=== PATIENT | female | born 1960 | race Caucasian/White ===

== ENCOUNTER → 2016-09-18 | Outpatient (CLI) | payer BC, OTHER ==
[~2016-09-18] MED LIST: ACET-1256 PO; DILT-113 PO; LISI20TA55 PO; METO50TA17 PO; SIMV20TA2 PO
[2016-09-18 17:47] LABS: BASO % 0.3 %; BASO ABS # 0.02 K/uL (0-0.2); COMPLETE YES; EOS % 2.8 %; HEMATOCRIT 42.7 % (37-47); IG% 0.1 %; LYMPH % 33.3 %; LYMPH ABS # 2.39 K/uL (1.2-3.4); MEAN CELL VOLUME 85.7 fL (80-100); MEAN CORPUSCULAR HEMOGLOBIN 29.3 pg (25-34); MEAN CORPUSCULAR HGB CONC 34.2 g/dl (32-36); MEAN PLATELET VOLUME 9.8 fL (7.4-10.4); MONO % 8.6 %; NEUT % 54.9 %; PLATELET COUNT 217 K/uL (130-400); RED BLOOD COUNT 4.98 M/uL (4.2-5.4); WHITE BLOOD COUNT 7.17 K/uL (4.8-10.8)
[2016-09-18 18:06] LABS: URINE APPEARANCE CLEAR (CLEAR); URINE BILIRUBIN NEG (NEG); URINE COLOR YELLOW; URINE EPITHELIAL CELL AUTO 0-5 /lpf (0-5); URINE NITRITE NEG (NEG); URINE SPECIFIC GRAVITY 1.017 (1.000-1.030); UROBILINOGEN NEG (NEG); ZZUR CULT IF INDIC CLEAN CATCH NO
[2016-09-18 18:11] LABS: MANUAL MICROSCOPIC REQUIRED? NO; REVIEW REQ? NO
[2016-09-18 18:32] LABS: ALT/SGPT 41 U/L (12-78); AST/SGOT 21 U/L (15-37); BLOOD UREA NITROGEN 22 mg/dl (7-18); BUN/CREATININE RATIO 33.2 (10-20); CALCIUM 9.4 mg/dl (8.5-10.1); CARBON DIOXIDE 28 mmol/L (21-32); CHLORIDE 103 mmol/L (98-107); CREATININE 0.65 mg/dl (0.60-1.20); GLUCOSE 80 mg/dl (70-99); POTASSIUM 3.3 mmol/L (3.5-5.1); SODIUM 140 mmol/L (136-145)
[2016-09-18 18:43] LABS: ALB/GLOB RATIO 1.1 (0.9-2); ALKALINE PHOSPHATASE 69 U/L (45-117); CHOLESTEROL 176 mg/dl (0-200); CHOLESTEROL/HDL RATIO 3.7; HDL CHOLESTEROL 48 mg/dl; LDL CHOLESTEROL CALCULATED 100 mg/dl; TRIGLYCERIDES 140 mg/dl (0-150); VERY LOW DENSITY LIPOPROT CALC 28 mg/dl
== END | disposition home or self-care (01) ==
LOC: C.LABBFT 11:46
PROVIDERS: ATTEND Internal Medicine
DX: E78.00 Pure hypercholesterolemia, unspecified (principal)

== ENCOUNTER → 2017-02-14 | Outpatient (CLI) | payer BC ==
[~2017-02-14] MED LIST changes: -ACET-1256 PO; -DILT-113 PO; -LISI20TA55 PO; -METO50TA17 PO; +OPTIRAY 320 IV PRN; -SIMV20TA2 PO
[2017-02-14 15:16] LABS: ISTAT CREATININE 0.7 mg/dl (0.6-1.3); ISTAT IONIZED CALCIUM 1.26 mmol/l (1.12-1.32)
--- NOTE | 2017-02-14 15:20 | DIAGNOSTIC IMAGING REPORT ---
CT OF THE NECK WITH CONTRAST CLINICAL HISTORY: Sore throat. Neck fullness. Evaluate for abscess. COMPARISON STUDY: No previous studies for comparison. TECHNIQUE: Axial images of the neck were obtained following intravenous injection of 113 cc of Optiray 320 IV. FINDINGS: Visualized portions of the intracranial contents are unremarkable. There is mild polypoid mucosal thickening of the left maxillary sinus. The parotid and submandibular glands are normal. The epiglottis is normal. There is no abscess within the neck. No enlarged cervical lymph nodes are identified. No mucosal lesions are identified within the neck although these may be occult by CT. There is asymmetric enlargement of the right thyroid lobe. There are multiple suspected thyroid nodules, the largest of which is a 2.1 cm hypodense right lobe thyroid nodule. Lung apices are clear. No suspicious osseous lesions are present. There is no soft tissue gas within the neck. IMPRESSION: 1. No acute process within the neck by CT. No abscess or lymphadenopathy. Normal epiglottis. 2. Findings suggestive of a multinodular thyroid gland with asymmetric enlargement of the right thyroid lobe. Suspected 2.1 cm right lobe thyroid nodule. A thyroid ultrasound could be obtained. Electronically signed by: Neto Heredia M.D. 02/14/2017 3:19 PM Dictated Date/Time: 02/14/2017 3:14 PM
== END | disposition home or self-care (01) ==
LOC: C.CTS 13:42
PROVIDERS: ATTEND Nurse Practitioner
DX: J02.9 Acute pharyngitis, unspecified (principal); R22.1 Localized swelling, mass and lump, neck

== ENCOUNTER → 2017-02-14 | Outpatient (CLI) | payer BC ==
[2017-02-14 17:21] LABS: BASO % 0.2 %; BASO ABS # 0.02 K/uL (0-0.2); COMPLETE YES; EOS % 1.9 %; HEMATOCRIT 45.8 % (37-47); IG% 0.1 %; LYMPH % 22.3 %; LYMPH ABS # 2.07 K/uL (1.2-3.4); MEAN CELL VOLUME 86.3 fL (80-100); MEAN CORPUSCULAR HEMOGLOBIN 28.6 pg (25-34); MEAN CORPUSCULAR HGB CONC 33.2 g/dl (32-36); MEAN PLATELET VOLUME 9.7 fL (7.4-10.4); MONO % 6.8 %; NEUT % 68.7 %; PLATELET COUNT 247 K/uL (130-400); RED BLOOD COUNT 5.31 M/uL (4.2-5.4); WHITE BLOOD COUNT 9.28 K/uL (4.8-10.8)
[2017-02-14 17:29] LABS: ALT/SGPT 48 U/L (12-78); AST/SGOT 18 U/L (15-37); BLOOD UREA NITROGEN 30 mg/dl (7-18); CARBON DIOXIDE 28 mmol/L (21-32); CHLORIDE 102 mmol/L (98-107); CREATININE 0.71 mg/dl (0.60-1.20); GLUCOSE 87 mg/dl (70-99); POTASSIUM 3.4 mmol/L (3.5-5.1); SODIUM 138 mmol/L (136-145)
[2017-02-14 17:39] LABS: ALB/GLOB RATIO 1.1 (0.9-2); ALKALINE PHOSPHATASE 72 U/L (45-117)
== END | disposition home or self-care (01) ==
LOC: C.LABBFT 12:12
PROVIDERS: ATTEND Nurse Practitioner
DX: J02.9 Acute pharyngitis, unspecified (principal); R22.1 Localized swelling, mass and lump, neck

== ENCOUNTER → 2017-02-19 | Outpatient (CLI) | payer BC ==
[~2017-02-19] MED LIST changes: +ACET-1256 PO; +DILT-113 PO; +LISI20TA55 PO; +METO50TA17 PO; -OPTIRAY 320 IV PRN; +SIMV20TA2 PO
--- NOTE | 2017-02-19 11:56 | DIAGNOSTIC IMAGING REPORT ---
SOFT TISS HEAD/NECK-THYROID HISTORY: Multinodular thyroid. COMPARISON: Soft tissue of the neck CT 02/14/2017 TECHNIQUE: Multiple real time sonographic images of the thyroid were obtained accessing hallman scale appearance and color doppler flow. FINDINGS: MEASUREMENTS: Right lobe: 6.5 x 2.6 x 2.8 cm Left lobe: 6.1 x 1.8 x 2.0 cm Isthmus: 0.8 cm Parenchyma: The thyroid parenchymal echotexture is diffusely heterogeneous. Nodules: Isoechoic circumscribed ovoid nodule in the right thyroid is seen, 2.1 x 1.7 x 1.7 cm with internal vascularity. Second similarly appearing iso to slightly hypoechoic right thyroid nodule measures 2.4 x 2.2 x 2.0 cm. Heterogeneous ovoid circumscribed isoechoic nodule of the left thyroid is seen measuring 1.9 x 1.2 x 1.5 cm with internal vascularity. No associated microcalcifications are identified. IMPRESSION: Heterogeneous multinodular goiter with three nodules identified measuring over 1.5 cm. These would meet criteria for FNA. The above report was generated using voice recognition software. It may contain grammatical, syntax or spelling errors. Electronically signed by: Edgard Caba M.D. 02/19/2017 11:54 AM Dictated Date/Time: 02/19/2017 11:49 AM
== END | disposition home or self-care (01) ==
LOC: C.ULTR 11:06
PROVIDERS: ATTEND Nurse Practitioner
DX: E04.2 Nontoxic multinodular goiter (principal)

== ENCOUNTER → 2017-03-18 | Outpatient (CLI) | payer BC ==
--- NOTE | 2017-03-18 11:24 | DIAGNOSTIC IMAGING REPORT ---
GUIDANCE NEEDLE PLACEMENT CLINICAL HISTORY: 56 years-old Female presenting with MUILTINODULAR THYROID. TECHNIQUE: Real-time grayscale and limited color Doppler ultrasound imaging of the thyroid and base of the neck was performed for ultrasound-guided fine-needle aspiration. COMPARISON: Ultrasound from 02/19/2017. PROCEDURE: The risks, benefits, and alternatives to the procedure were discussed with the patient. Written informed consent was obtained. The patient was placed supine in ultrasound. The previously identified 2 right and single left thyroid nodules were targeted in succession for fine-needle aspiration with the superior right thyroid lobe nodule labeled right #1 and the inferior right thyroid lobe nodule labeled right #2. The 2.1 cm nodule in the right lobe of the thyroid was localized by ultrasound and selected for initial fine needle aspiration. The additional 2.4 cm right thyroid nodule and 1.9 cm left thyroid nodule were also subsequently targeted. The neck was prepped and draped in the usual sterile fashion. The nodules were aspirated under ultrasound guidance with 3 passes each utilizing 25-gauge needles. Specimens were reviewed by the pathologist at the time of biopsy and were deemed adequate for diagnosis. The patient tolerated the procedure well and left the department in satisfactory condition. IMPRESSION: Successful fine-needle aspiration of the 3 thyroid nodules as above. Electronically signed by: Derick Sheth M.D. 03/18/2017 11:22 AM Dictated Date/Time: 03/18/2017 11:19 AM
== END | disposition home or self-care (01) ==
LOC: C.ULTR 09:30
PROVIDERS: ATTEND Physician Assistant Medical
DX: E04.2 Nontoxic multinodular goiter (principal)

== ENCOUNTER → 2017-05-10 | Day surgery (SDC) | payer BC ==
[2017-04-25 15:30] VITALS: BMI 34.0
[~2017-05-10] VITALS: Ht 165.1 cm; Wt 93.2 kg
[~2017-05-10] MED LIST changes: +LIDOCAINE HCL 2% 2 ML VIAL (20MG/ML) ONE; +MIDAZOLAM HCL 1 MG/ML 2ML VIAL ONE; +PROPOFOL IV EMULSION 10 MG/ML 20 ML VIAL IV ONE; +SODIUM CHLORIDE 0.9% 500ML 500 ML IV ONE
[2017-05-10 09:17] VITALS: Ht 165.1 cm; Wt 93.2 kg
--- NOTE | 2017-05-10 09:28 | Endo History and Physical ---
History & Physical Date of Service: May 10, 2017. Chief Complaint: Family history of colon cancer (Father) Referring Physician: Dr. Denney History of Present Illness 57 yo CF who presents for colonoscopy secondary to family history of colon cancer (Father). Past Surgical History Hx Cardiac Surgery: No Hx Internal Defibrillator: No Hx Pacemaker: No Hx Abdominal Surgery: Yes (C SECTION X 2) Hx of Implantable Prosthesis: No Hx Post-Op Nausea and Vomiting: No Hx Cancer Surgery: No Hx Thoracic Surgery: No Hx Orthopedic: Yes (GIANT CELL EXCISION L HAND) Hx Urinary Tract Surgery: No Family History Colon CA Social History Smoking Status: Never Smoker Hx Substance Use: No Hx Alcohol Use: Yes (RARELY) Allergies Coded Allergies: Penicillins (Verified Allergy, Unknown, RASH,DIARRHEA,PUFFY FACE A CHILD, 05/10/17) Current Medications Reported Home Medications Medications Dose Route/Sig Max Daily Dose Days Date Category Tylenol (Acetaminophen) 500 Mg Tab 1,000 Mg PO PRN 04/25/17 Reported Zocor (Simvastatin) 20 Mg Tab 20 Mg PO HS 04/25/17 Reported Metoprolol Tartrate 50 Mg Tab 50 Mg PO QAM 04/25/17 Reported Prinzide 20-25MG (HCTZ/Lisinopril) Tab 1 Tab PO BID 04/25/17 Reported Tiazac (Diltiazem HCl) 180 Mg Capcr 180 Mg PO QAM 04/25/17 Reported Vital Signs Weight (Kilograms): 93.18 Height (Feet): 5 Height (Inches): 5 Physical Exam General Appearance: WD/WN, no apparent distress Respiratory/Chest: Auscultation: breath sounds normal Cardiovascular: Heart Auscultation: RRR Abdomen: Bowel Sounds: normal Inspection & Palpation: soft, non-distended, no tenderness, guarding & rebound Assessment and Plan Assessment: 57 yo CF who presents for colonoscopy secondary to family history of colon cancer (Father). Plan: Proceed with colonoscopy.
--- NOTE | 2017-05-10 10:16 | Discharge Instructions ---
Endoscopy Patient Instructions Date / Procedure(s) Performed May 10, 2017. Colonoscopy Allergy Information Coded Allergies: Penicillins (Verified Allergy, Unknown, RASH,DIARRHEA,PUFFY FACE A CHILD, 05/10/17) Discharge Date / Findings May 10, 2017. Diverticulosis Internal hemorrhoids Medication Instructions OK to resume all medications today as prescribed Reported Home Medications Medications Dose Route/Sig Max Daily Dose Days Date Category Tylenol (Acetaminophen) 500 Mg Tab 1,000 Mg PO PRN 04/25/17 Reported Zocor (Simvastatin) 20 Mg Tab 20 Mg PO HS 04/25/17 Reported Metoprolol Tartrate 50 Mg Tab 50 Mg PO QAM 04/25/17 Reported Prinzide 20-25MG (HCTZ/Lisinopril) Tab 1 Tab PO BID 04/25/17 Reported Tiazac (Diltiazem HCl) 180 Mg Capcr 180 Mg PO QAM 04/25/17 Reported Provider Instructions Activity Restrictions - No exercising or heavy lifting for 24 hours. - Do not drink alcohol the day of the procedure. - Do not drive a car or operate machinery until the day after the procedure. - Do not make any important decisions or sign important papers in 24 hours after the procedure. Following Day: - Return to full activity which may include returning to work/school. Diet Start your diet with liquids and light foods (jello, soup, juice, toast). Then eat your usual diet if not nauseated. Treatment For Common After Affects For mild abdominal pain, bloating, or excessive gas: - Rest - Eat lightly - Lie on right side Follow-Up Information Follow-up with DR. SWANSON as scheduled Anesthesia Information What You Should Know You have had a procedure that required some medicine to reduce anxiety and discomfort. This treatment is called moderate sedation. After receiving the treatment, you may be sleepy, but you will be able to breathe on your own. The effects of the treatment may last for several hours. Follow these instructions along with Activity/Diet recommendations noted above: * Do NOT do anything where dizziness or clumsiness would be dangerous. * Rest quietly at home today, then you can be up and about tomorrow. * Have a responsible person stay with you the rest of today. * You may have had an I.V. today. If so, you may take the dressing off later today. Recommendations Call your doctor if: * Trouble breathing * Continuous vomiting for more than 24 hours * Temperature above 101 degrees * Severe abdominal pain or bloating * Pain not relieved by pain medicine ordered * There is increased drainage or redness from any incision * A large amount of rectal bleeding greater than 2-3 tablespoons. (If you had a polyp/s removed or have hemorrhoids, a small amount of blood - from the rectum is to be expected.) * You have any unanswered questions or concerns. IN THE EVENT OF A SERIOUS EMERGENCY, GO TO THE NEAREST EMERGENCY ROOM Your discharge instructions were prepared by provider Bret Lzooya. Patient Instructions Signature Page Rianna Quintero Patient (or Guardian) Signature/Date: I have read and understand the instructions given to me by my caregivers. Caregiver/RN/Doctor Signature/Date: The above-named patient and/or guardian has received patient instructions on this date. + Original Patient Signature Page (only) stays with chart. Please make copy for patient.
--- NOTE | 2017-05-10 10:21 | GI REPORT ---
Procedure Date: 05/10/2017 9:55 AM Procedure: Colonoscopy Indications: Family history of colon cancer in a first-degree relative Medicines: Monitored Anesthesia Care Complications: No immediate complications. Estimated Blood Loss: Estimated blood loss: none. Procedure: Pre-Anesthesia Assessment: - Prior to the procedure, a History and Physical was performed, and patient medications and allergies were reviewed. The patient's tolerance of previous anesthesia was also reviewed. The risks and benefits of the procedure and the sedation options and risks were discussed with the patient. All questions were answered, and informed consent was obtained. Prior Anticoagulants: The patient has taken no previous anticoagulant or antiplatelet agents. ASA Grade Assessment: II - A patient with mild systemic disease. After reviewing the risks and benefits, the patient was deemed in satisfactory condition to undergo the procedure. After I obtained informed consent, the scope was passed under direct vision. Throughout the procedure, the patient's blood pressure, pulse, and oxygen saturations were monitored continuously. The scope was introduced through the anus and advanced to the terminal ileum. The colonoscopy was performed without difficulty. The patient tolerated the procedure well. The quality of the bowel preparation was good. The terminal ileum, the ileocecal valve and the appendiceal orifice were photographed. Findings: Multiple small-mouthed diverticula were found in the sigmoid colon. Non-bleeding internal hemorrhoids were found during retroflexion. The hemorrhoids were small. Impression: - Diverticulosis in the sigmoid colon. - Non-bleeding internal hemorrhoids. - No specimens collected. Recommendation: - Resume previous diet. - Continue present medications. - Repeat colonoscopy in 5 years for surveillance. - Return to primary care physician as previously scheduled. Bret Lozoya, 05/10/2017 10:20:45 AM This report has been signed electronically. Note Initiated On: 05/10/2017 9:55 AM I attest to the content of the Intraoperative Record and orders documented therein, exceptions below
--- NOTE | 2017-05-10 10:46 | Anesthesiology Progress Note ---
Anesthesia Post Op Note Date & Time May 10, 2017 at 10:46 Vital Signs Pain Intensity: 0 Vital Signs Past 12 Hours Date Time Temp Pulse Resp B/P (MAP) Pulse Ox O2 Delivery O2 Flow Rate FiO2 05/10/17 10:34 64 20 121/75 (90) 98 Room Air 05/10/17 10:17 64 20 112/71 (85) 98 Room Air 05/10/17 09:39 36.8 55 20 137/74 (95) 98 Room Air Notes Mental Status: alert / awake / arousable, participated in evaluation Pt Amnestic to Procedure: Yes Nausea / Vomiting: adequately controlled Pain: adequately controlled Airway Patency, RR, SpO2: stable & adequate BP & HR: stable & adequate Hydration State: stable & adequate Anesthetic Complications: no major complications apparent
[2017-05-10 10:50] VITALS: BP 135/84; PULSE 54; O2SAT 99
== END | disposition home or self-care (01) ==
LOC: C.GI 09:03
PROVIDERS: ATTEND Internal Medicine
DX: Z12.11 Encounter for screening for malignant neoplasm of colon (principal); K57.32 Diverticulitis of large intestine without perforation or abscess without bleeding; K64.8 Other hemorrhoids; Z80.0 Family history of malignant neoplasm of digestive organs

== ENCOUNTER 2020-04-18 05:22 | Observation (INO) ==
[2020-04-13 12:00] LABS: Basophils # (auto) 0.02 K/uL (0-0.2); Basophils % (auto) 0.3 %; Eosinophils # (auto) 0.18 K/uL (0-0.5); Eosinophils % (auto) 2.9 %; Hematocrit (blood only) 43.8 % (37-47); Hemoglobin 14.8 g/dL (12.0-16.0); Immature Granulocytes # (auto) 0.01 K/uL (0.00-0.02); Immature Granulocytes % (auto) 0.2 %; Lymphocytes # (auto) 1.44 K/uL (1.2-3.4); Lymphocytes % (auto) 23.5 %; Mean Corpuscular Hemoglobin 29.7 pg (25-34); Mean Corpuscular Hgb Conc 33.8 g/dL (32-36); Mean Corpuscular Volume 87.8 fL (80-100); Mean Platelet Volume 9.3 fL (7.4-10.4); Monocytes # (auto) 0.55 K/uL (0.11-0.59); Neutrophils # (auto) 3.92 K/uL (1.4-6.5); Neutrophils % (auto) 64.1 %; Platelet Count 207 K/uL (130-400); RDW Coefficient of Variation 14.4 % (11.5-14.5); RDW Standard Deviation 46.2 fL (36.4-46.3); Red Blood Count 4.99 M/uL (4.2-5.4); White Blood Count 6.12 K/uL (4.8-10.8)
[2020-04-13 12:08] LABS: BUN Creatinine Ratio 21.8 (10-20); Creatinine Clr Calc Pharmacy 88.1 ml/min; Est GFR (African American) 91.5; Est GFR (Non-African American) 78.9; Potassium 3.4 mmol/L (3.5-5.1)
--- NOTE | 2020-04-13 19:21 | Electrocardiogram Report ---
Test Reason : Blood Pressure : / mmHG Vent. Rate : 054 BPM Atrial Rate : 054 BPM P-R Int : 178 ms QRS Dur : 100 ms QT Int : 444 ms P-R-T Axes : 016 024 030 degrees QTc Int : 421 ms Sinus bradycardia Otherwise normal ECG When compared with ECG of 09-FEB-2019 14:55, No significant change was found Confirmed by Jamal Galloway ([id number]) on 04/13/2020 7:20:46 PM Referred By: Jermaine Segal Confirmed By:Ziggy Galloway
--- NOTE | 2020-04-14 09:12 | Anesthesiology Consultation ---
Date of Service April 14, 2020 Assessment & Plan (1) Encounter for pre-operative examination: COVID Status: As of 04/07 nurse assessment, patient denies travel to endemic area, known exposure/sick contacts, or symptoms of COVID19. The patient works at [employer], but there have been no positive cases recently. Preoperative COVID19 testing completed on 04/13, results currently pending. Chart Review Chart Review: Acceptable Risk for Surgery and Patient NOT seen in Pre Admission Testing History Surgery Operation Date: 04/18/20 07:00 Proposed Procedures p Laparoscopic Incisional and Umbilical Hermia Reapir, Possible Open - Jermaine Segal MD, FACS Height/Weight Height: 5 ft 5 in Weight: 103.419 kg Allergies Allergy/AdvReac Type Severity Reaction Status Date / Time Penicillins Allergy Intermediate RASH,DIARRHEA,PUFFY Verified 04/07/20 08:25 FACE A CHILD Medications Home Medications Medication Instructions Recorded Confirmed Last Taken simvastatin 20 mg tablet 20 mg PO HS #90 tab 07/14/19 04/07/20 Unknown lisinopril 20 1 tab PO BID #180 tab 07/23/19 04/07/20 Unknown mg-hydrochlorothiazide 25 mg tablet diltiazem HCl 180 mg capsule,24 180 mg PO DAILY #90 cap 08/26/19 04/07/20 Unknown hr,extended release metoprolol tartrate 50 mg tablet 50 mg PO QPM #90 tab 08/27/19 04/07/20 Unknown Past Medical History Medical History Endometrial cancer Diagnosed 02/11/19 (SURGERY AND INTERNAL RADIATION) Hypertension Obesity Past Family History Family History Mother , Passed age 80 of Heart Disease Cervical cancer, Onset Age: 40 Had hysterectomy as only treatment Heart disease Hypertension Father , Passed age 88 of Colon Cancer (refused treatment at diagnosis) Colorectal cancer Brother Heart disease Family history of diabetes mellitus Brother Heart disease Brother Heart disease Daughter No problems noted. Son No problems noted. Son No problems noted. Grandmother (Maternal) Heart disease Denies family history of Ovarian cancer Prostate cancer Myocardial infarction Breast cancer Past Surgical History Surgical History Family history of reaction to anesthesia MOTHER-SLOW TO WAKE UP History of surgery LEFT INDEX FINGER (BENIGN TUMOR REMOVAL) History of tooth extraction History of total hysterectomy with bilateral salpingo-oophorectomy (BSO) 03/12/19 (with Dr. Jay) Hx of section 1980 & 1983 Hx of colonoscopy Hx of dilation and curettage MULTIPLE Social History Smoking Status: Never smoker Do You Dip or Chew Tobacco: No Hx Alcohol Use: Yes Alcohol type: wine alcohol intake frequency: a few times a month Hx Substance Use: No substance use type: does not use Testing Laboratory Results 04/13/20 09:52 04/13/20 09:52 Electrocardiogram Date: 04/13/20 Findings: + SB @ (54bpm)
[2020-04-14 19:33] LABS: SARS CoV2 RNA (COVID-19) NOT DETECTED (NOT DETECTED)
[2020-04-18] MEDS ORDERED: CEFAZOLIN 2000MG 2,000 MG/15 ML SYR IV SCH (06:00)
[2020-04-18] MEDS ORDERED: LACTATED RINGER'S 1,000 ML IV SCH (06:00)
--- NOTE | 2020-04-18 06:22 | History & Physical Report ---
Date of Service April 18, 2020 Assessment & Plan (1) Incisional hernia: Patient with umbilical hernia and incisional hernia For laparoscopic hernia repair possible open repair [facility] with general anesthesia Observation History of Present Illness Primary Care Provider: Dwayne Denney MD 60-year-old female with a history of umbilical hernia and incisional hernia just below the umbilicus She has had prior hysterectomy via robotic surgery She has a history of radiation therapy She is for laparoscopic hernia repair possible open Allergies Allergy/AdvReac Type Severity Reaction Status Date / Time Penicillins Allergy Intermediate RASH,DIARRHEA,PUFFY Verified 04/18/20 05:52 FACE A CHILD Home Medications Home Medications Medication Instructions Recorded Confirmed Type simvastatin 20 mg tablet 20 mg PO HS #90 tab 07/14/19 04/18/20 Rx lisinopril 20 1 tab PO BID #180 tab 07/23/19 04/18/20 Rx mg-hydrochlorothiazide 25 mg tablet diltiazem HCl 180 mg capsule,24 180 mg PO DAILY #90 cap 08/26/19 04/18/20 Rx hr,extended release metoprolol tartrate 50 mg tablet 50 mg PO QPM #90 tab 08/27/19 04/18/20 Rx Past Med/Surg History Medical History Endometrial cancer Diagnosed 02/11/19 (SURGERY AND INTERNAL RADIATION) Hypertension Obesity Surgical History Family history of reaction to anesthesia MOTHER-SLOW TO WAKE UP History of surgery LEFT INDEX FINGER (BENIGN TUMOR REMOVAL) History of tooth extraction History of total hysterectomy with bilateral salpingo-oophorectomy (BSO) 03/12/19 (with Dr. Jay) Hx of section 1980 & 1983 Hx of colonoscopy Hx of dilation and curettage MULTIPLE Family History Mother , Passed age 80 of Heart Disease Cervical cancer, Onset Age: 40 Had hysterectomy as only treatment Heart disease Hypertension Father , Passed age 88 of Colon Cancer (refused treatment at diagnosis) Colorectal cancer Brother Heart disease Family history of diabetes mellitus Brother Heart disease Brother Heart disease Daughter No problems noted. Son No problems noted. Son No problems noted. Grandmother (Maternal) Heart disease Denies family history of Ovarian cancer Prostate cancer Myocardial infarction Breast cancer Social History (Updated 03/08/20 @ 08:25 by Raina Panchal RN) Smoking Status: Never smoker Second Hand Exposure: No; Do You Dip or Chew Tobacco: No; Tobacco Cessation Education Requested by Patient: No Hx Alcohol Use: Yes Alcohol type: wine Alcohol Intake Frequency Comment: occassionally Hx Substance Use: No Preferred Language: Burmese Communication Ability: Effective Visual Impairment: Limited Hearing Ability: Normal Qa Lead Required: No Beliefs That Will Affect Care: None marital status: Current Living Situation: Spouse current occupational status: employed 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 @ [employer] Feels Safe at Home: Yes Safety Concerns: Feels Safe At This Time Childhood Exposure to Second-Hand Smoke: No caffeine: Yes (2-3 cups of iced tea/day ) during the past year weight has: decreased > 10 lbs Dental Care, Regularly: Yes Physical Activity Frequency: 3-4 Times per Week Review of Systems All systems reviewed & are unremarkable except as noted in HPI & below Physical Exam Constitutional: well developed and well nourished; no acute distress Eyes: + anicteric sclerae Respiratory: normal respiratory effort; no respiratory distress Cardiovascular: Rate/Rhythm: regular rate Gastrointestinal (Abdomen): Percussion/Palpation: abdomen soft Musculoskeletal: Gait: normal gait Skin: no rashes, warm and dry Neurologic: awake Psychiatric: Orientation: alert Results & Data ([facility]) Vital Signs (Past 12 Hours) Vital Signs Temp Pulse Resp BP Pulse Ox 04/18/20 05:42 36.6 C 63 18 147/77 H 97
[2020-04-18] MEDS ORDERED: ROCURONIUM BROMIDE 10 MG/ML 5 ML VIAL IV ONE (06:25)
[2020-04-18] MEDS ORDERED: GLYCOPYRROLATE 0.2 MG/ML VIAL ONE (06:25)
[2020-04-18] MEDS ORDERED: PROPOFOL IV EMULSION 10 MG/ML 20 ML VIAL IV ONE (06:25)
[2020-04-18] MEDS ORDERED: LIDOCAINE HCL 2% 2 ML VIAL/AMP(20MG/ML) INFIL ONE (06:25)
[2020-04-18] MEDS ORDERED: NEOSTIGMINE METHYLSULFATE 5 MG/5 ML SYR ONE (06:25)
[2020-04-18] MEDS ORDERED: fentaNYL citrate 100 MCG/2 ML VIAL ONE (06:26)
[2020-04-18] MEDS ORDERED: MIDAZOLAM HCL 1 MG/ML 2ML VIAL ONE (06:26)
[2020-04-18] MEDS ORDERED: LIDOCAINE HCL 1% 20 ML VIAL ONE (06:46)
[2020-04-18] MEDS ORDERED: BUPIVACAINE 0.5 % 5 MG/1 ML MPF 30ML VIAL ONE ×2 (06:46→07:49)
[2020-04-18] MEDS ORDERED: ePHEDrine sulfate 50 MG/ML AMP IV PRN (06:50)
[2020-04-18] MEDS ORDERED: fentaNYL citrate 100 MCG/2 ML VIAL IV PRN (06:50)
[2020-04-18] MEDS ORDERED: ONDANSETRON INJ 2 MG/ML 2 ML VIAL IV PRN ×2 (06:50→09:41)
[2020-04-18] MEDS ORDERED: ATROPINE SULFATE 0.1 MG/ML 10ML SYR IV PRN (06:50)
[2020-04-18] MEDS ORDERED: ONDANSETRON INJ 2 MG/ML 2 ML VIAL ONE (07:19)
[2020-04-18] MEDS ORDERED: DEXAMETHASONE SOD INJ 4 MG/ML VIAL ONE (07:19)
[2020-04-18] MEDS ORDERED: ePHEDrine sulfate 50 MG/ML SYR ONE (08:11)
[2020-04-18] MEDS ORDERED: ACETAMINOPHEN 1,000 MG/100 ML VIAL IV ONE (08:14)
--- NOTE | 2020-04-18 08:14 | Post Operative Brief Note ---
PG Immediate Post Op with CF Date of Surgery April 18, 2020 Pre & Post Diagnosis Operation Date: 04/18/20 07:00 Pre-Op Diagnosis: Incisional Hernia; Umbilical Hernia Post-Op Diagnosis: Incisional Hernia; Umbilical Hernia I identified the patient and participated in the time-out.: Yes Procedure Operation Date: 04/18/20 07:00 Actual Procedures p Laparoscopic Incisional and Umbilical Hermia Repair(Not Applicable) - Jermaine Segal MD, FACS Surgeon Jermaine Segal MD, FACS [employer] Kimmy Candelario Estimated Blood Loss 10 Findings Consistent with Post-Op Diagnosis Specimens Specimen Description: None per surgeon
--- NOTE | 2020-04-18 08:49 | Anesthesiology Progress Note ---
Date of Service April 18, 2020 Anesthesia Post Procedure Vital Signs Vital Signs: Temp Pulse Pulse Resp BP Pulse Ox 04/18/20 08:35 61 16 104/62 96 04/18/20 08:28 36.6 C 66 16 115/63 97 04/18/20 05:42 36.6 C 63 18 147/77 H 97 Transfer of Care Handoff Completed per policy Notes Mental Status: alert / awake / arousable Patient Amnestic to Procedure: Yes Nausea / Vomiting: adequately controlled Pain: adequately controlled Airway Patency, RR, SpO2: stable & adequate BP & HR: stable & adequate Hydration State: stable & adequate Anesthetic Complications: no major complications apparent
--- NOTE | 2020-04-18 08:55 | Operative Report (OR) ---
DATE OF OPERATION: 04/18/2020 NAME OF OPERATION: Laparoscopic umbilical and incisional hernia repairs. PREOPERATIVE DIAGNOSIS: Umbilical and incisional hernia. POSTOPERATIVE DIAGNOSIS: Umbilical and incisional hernia. STAFF SURGEON: Jermaine Segal MD. PARCEL WRAPPER: Sandeep Candelario PA-C. ANESTHESIA: General. DESCRIPTION OF PROCEDURE: The patient was brought in the operating room and placed on the operating table in supine position. Her abdomen was prepped and draped in usual fashion. Pneumatic stockings, orogastric tube were placed. My human resources assistant manager helped with prepping, draping, repair of the hernia and closure of the wounds. Initially, incision was made in the left upper quadrant using 0.5% plain Marcaine to anesthetize all incisions. Dissection was carried down to the fascia, placing a Veress needle producing pneumoperitoneum, placing an 11 mm port. Under visualization, four 5 mm ports were placed, 2 in the left, 2 in the right. On visualization, the patient had omentum attached to the area of the sac just below the umbilicus, which was an incisional hernia. It was a larger hernia which was 4-5 cm in diameter. There was a small umbilical hernia with adipose tissue. The omentum was taken down and then a 15 cm piece of Surgimesh was chosen, placed into the abdomen with the polypropylene toward the fascia, silicone toward the bowel. The suture was brought up through the incisional hernia defect and then the mesh was secured covering both incisions very well with 3-4 cm of overlap. We used absorbable tacks in 2 layers, 1 outer and 1 inner layer. We then placed 0 Ethibond tacking sutures in 4 sites around the area using a small stab wounds and a suture passer. At this point, the ports were all removed. Pneumoperitoneum reduced. The incisions were closed using 5-0 Prolene except for the left upper quadrant, which was closed using 0 Vicryl for the fascia, 2-0 plain for the subcutaneous tissue and then 4-0 Monocryl for the skin in a subcuticular fashion with Steri-Strips applied. The patient was transferred to recovery room in stable condition. I attest to the content of the Intraoperative Record and any orders documented therein. Any exception s are noted below.
[2020-04-18] MEDS ORDERED: HYDROCODONE/ACETAMOPHEN 5/325MG TAB PO PRN (09:41)
[2020-04-18] MEDS ORDERED: PROMETHAZINE HCL 12.5 MG in SODIUM CHLORIDE 0.9% 50 ML IV PRN (09:41)
[2020-04-18] MEDS ORDERED: HYDROmorphone INJ 1 MG/ML SYRINGE IV PRN (09:41)
[2020-04-18] MEDS ORDERED: PROMETHAZINE HCL 25 MG in SODIUM CHLORIDE 0.9% 50 ML IV PRN (09:41)
[2020-04-18] MEDS ORDERED: IBUPROFEN 600 MG TAB PO PRN (09:41)
[2020-04-18] MEDS ORDERED: HYDROmorphone INJ 0.5 MG/0.5 ML SYR IV PRN (09:41)
[2020-04-18] MEDS ORDERED: LISINOPRIL/HCTZ 20/25MG 1 TAB PO SCH (10:00)
[2020-04-18] MEDS ORDERED: dilTIAZem ER 180 MG CAPCR PO SCH (10:15)
--- NOTE | 2020-04-18 10:22 | Hospitalist Consultation ---
Date of Consultation April 18, 2020 Assessment & Plan (1) Status post hernia repair: Routine postop and pain management per surgery (2) Hypertension: Mild hypotension post procedure. Hold lisinopril/hydrochlorothiazide dose this evening. Can restart tomorrow with hold parameters. Continue metoprolol tartrate 50 mg every afternoon with hold parameters. Continue diltiazem 180 mg ER every morning with hold parameters. CBC and BMP with a.m. labs. (3) DVT prophylaxis: SCDs History of Present Illness Reason for Consultation: med mgt Attending Physician: Jermaine Segal MD, FACS History of Present Illness Rianna Quintero is a 60-year-old female who presents for elective laparoscopic umbilical and incisional hernia repairs under Dr. Segal performed earlier today (April 18, 2020). Doing well postoperatively with no questions or concerns at this time. Pain under control. Mild postoperative hypotension but no dizziness or lightheadedness. She has a notable history of stage Ib endometrial adenocarcinoma treated with surgery (laparoscopic hysterectomy +BSO) and intracavitary radiation. She is treated for hypertension since the age of 29 taking diltiazem, lisinopril, hydrochlorothiazide, metoprolol. She takes simvastatin due to elevated ASCVD score. Allergies Allergy/AdvReac Type Severity Reaction Status Date / Time Penicillins Allergy Intermediate RASH,DIARRHEA,PUFFY Verified 04/18/20 05:52 FACE A CHILD Home Medications Home Medications Medication Instructions Recorded Confirmed Type simvastatin 20 mg tablet 20 mg PO HS #90 tab 07/14/19 04/18/20 Rx lisinopril 20 1 tab PO BID #180 tab 07/23/19 04/18/20 Rx mg-hydrochlorothiazide 25 mg tablet diltiazem HCl 180 mg capsule,24 180 mg PO DAILY #90 cap 08/26/19 04/18/20 Rx hr,extended release metoprolol tartrate 50 mg tablet 50 mg PO QPM #90 tab 08/27/19 04/18/20 Rx Patient History Medical History Endometrial cancer Diagnosed 02/11/19 (SURGERY AND INTERNAL RADIATION) Hypertension Obesity Surgical History Family history of reaction to anesthesia MOTHER-SLOW TO WAKE UP History of surgery LEFT INDEX FINGER (BENIGN TUMOR REMOVAL) History of tooth extraction History of total hysterectomy with bilateral salpingo-oophorectomy (BSO) 03/12/19 (with Dr. Jay) Hx of section 1980 & 1983 Hx of colonoscopy Hx of dilation and curettage MULTIPLE Family History Mother , Passed age 80 of Heart Disease Cervical cancer, Onset Age: 40 Had hysterectomy as only treatment Heart disease Hypertension Father , Passed age 88 of Colon Cancer (refused treatment at diagnosis) Colorectal cancer Brother Heart disease Family history of diabetes mellitus Brother Heart disease Brother Heart disease Daughter No problems noted. Son No problems noted. Son No problems noted. Grandmother (Maternal) Heart disease Denies family history of Ovarian cancer Prostate cancer Myocardial infarction Breast cancer Social History Smoking Status: Never smoker Second Hand Exposure: No; Do You Dip or Chew Tobacco: No; Tobacco Cessation Education Requested by Patient: No Hx Alcohol Use: Yes Alcohol type: wine Alcohol Intake Frequency Comment: occassionally Hx Substance Use: No Preferred Language: Yi Communication Ability: Effective Visual Impairment: Limited Hearing Ability: Normal Winch Runner Required: No Beliefs That Will Affect Care: None marital status: Current Living Situation: Spouse current occupational status: employed 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[employer] [place] Feels Safe at Home: Yes Safety Concerns: Feels Safe At This Time Childhood Exposure to Second-Hand Smoke: No caffeine: Yes (2-3 cups of iced tea/day ) during the past year weight has: decreased > 10 lbs Dental Care, Regularly: Yes Physical Activity Frequency: 3-4 Times per Week Review of Systems Review of Systems: All systems reviewed & are unremarkable except as noted in HPI & below Physical Exam Constitutional: WD/WN, vitals as above Eyes: + anicteric sclerae; normal pupil size ENMT: external ear and nose normal, oropharynx normal Neck: trachea midline Respiratory: normal respiratory effort, lungs clear to auscultation Cardiovascular: RRR, no murmur, no edema Gastrointestinal (Abdomen): Inspection/Auscultation: normal bowel sounds Percussion/Palpation: abdomen soft; abdomen nontender, no guarding and abdomen not rigid Postoperative dressings not removed, clean/dry. Musculoskeletal: no cyanosis or clubbing, extremities motor strength 5/5 Skin: no rashes, warm and dry Neurologic: moves all extremities and awake; not confused Psychiatric: A+Ox3, euthymic affect Results & Data Results & Data ([facility]) Vital Signs (Past 12 Hours) Vital Signs Temp Pulse Pulse Resp BP Pulse Ox 04/18/20 10:01 36.8 C 57 L 18 95/58 L 92 04/18/20 09:30 36.8 C 57 L 18 97/54 L 04/18/20 09:20 60 16 105/60 94 04/18/20 09:05 36.6 C 57 L 16 110/61 95 04/18/20 08:55 56 L 16 109/63 96 04/18/20 08:45 58 L 16 110/65 97 04/18/20 08:35 61 16 104/62 96 04/18/20 08:28 36.6 C 66 16 115/63 97 04/18/20 05:42 36.6 C 63 18 147/77 H 97 PG Care Time/CCT Total # of Minutes Spent Total Time Spent with Patient: Total time spent is greater than 50% in coordinat ion of care (as documented) at patient's floor/unit and/or counseling patient: Coding Level of Care Code 66701 Inpt Consult Level 3 History Expanded Problem Focused Exam Expanded Problem Focused Medical Decision Making Straight Forward Diagnoses Status post hernia repair Z98.890; Z87.19 Hypertension I10 DVT prophylaxis Z29.9
[2020-04-18] MEDS: MAGNESIUM HYDROXIDE SUSP 30 ML UDC PO SCH ×2 (10:36→20:21)
[2020-04-18] MEDS: SODIUM CHLORIDE 0.9% 1000ML 1,000 ML IV SCH (10:36)
[2020-04-18] MEDS: DOCUSATE SODIUM/SENNA 50/8.6MG TAB PO SCH ×2 (10:37→20:22)
[2020-04-18] MEDS: ACETAMINOPHEN 325 MG TAB PO PRN ×2 (13:40→19:18)
[2020-04-18] MEDS: CEFAZOLIN 1000MG 1,000 MG/7.5 ML SYR IV SCH ×2 (13:40→22:13)
[2020-04-18] MEDS ORDERED: SIMVASTATIN 20 MG TAB PO SCH (21:00)
[2020-04-18] MEDS ORDERED: METOPROLOL TARTRATE 50 MG TAB PO SCH (21:00)
[2020-04-18] MEDS: HYDROCODONE/ACETAMOPHEN 5/325MG TAB PO PRN (23:38)
[2020-04-19 02:44] VITALS: TEMP 97.5
[2020-04-19] MEDS: SODIUM CHLORIDE 0.9% 1000ML 1,000 ML IV SCH (06:07)
[2020-04-19] MEDS: CEFAZOLIN 1000MG 1,000 MG/7.5 ML SYR IV SCH (06:07)
[2020-04-19 06:33] LABS: Hematocrit (blood only) 40.9 % (37-47); Hemoglobin 13.8 g/dL (12.0-16.0); Immature Granulocytes # (auto) 0.02 K/uL (0.00-0.02); Immature Granulocytes % (auto) 0.2 %; Lymphocytes # (auto) 0.94 K/uL (1.2-3.4); Lymphocytes % (auto) 8.9 %; Mean Corpuscular Hemoglobin 29.6 pg (25-34); Mean Corpuscular Hgb Conc 33.7 g/dL (32-36); Mean Corpuscular Volume 87.8 fL (80-100); Mean Platelet Volume 9.1 fL (7.4-10.4); Monocytes # (auto) 0.44 K/uL (0.11-0.59); Monocytes % (auto) 4.2 %; Neutrophils # (auto) 9.14 K/uL (1.4-6.5); Neutrophils % (auto) 86.7 %; Platelet Count 198 K/uL (130-400); RDW Coefficient of Variation 14.4 % (11.5-14.5); RDW Standard Deviation 46.3 fL (36.4-46.3); Red Blood Count 4.66 M/uL (4.2-5.4); White Blood Count 10.54 K/uL (4.8-10.8)
[2020-04-19 07:16] LABS: Albumin Level 3.3 gm/dl (3.4-5.0); BUN Creatinine Ratio 19.1 (10-20); Calcium 9.5 mg/dl (8.5-10.1); Creatinine Clr Calc Pharmacy 82.7 ml/min; Est GFR (African American) 83.9; Est GFR (Non-African American) 72.4; Magnesium 2.2 mg/dl (1.8-2.4); Potassium 3.9 mmol/L (3.5-5.1)
[2020-04-19 07:18] LABS: Albumin Globulin Ratio 0.9 (0.9-2); Bilirubin,Total 0.5 mg/dl (0.2-1); Globulin 3.7 gm/dl (2.5-4.0); Phosphorus 2.8 mg/dl (2.5-4.9)
[2020-04-19] MEDS: DOCUSATE SODIUM/SENNA 50/8.6MG TAB PO SCH (07:26)
[2020-04-19] MEDS: HYDROCODONE/ACETAMOPHEN 5/325MG TAB PO PRN (07:27)
[2020-04-19] MEDS: MAGNESIUM HYDROXIDE SUSP 30 ML UDC PO SCH (07:27)
[2020-04-19 07:51] VITALS: BP 127/76; PULSE 53; O2SAT 95
[2020-04-19] MEDS ORDERED: dilTIAZem ER 180 MG CAPCR PO SCH (09:00)
[2020-04-19] MEDS ORDERED: LISINOPRIL/HCTZ 20/25MG 1 TAB PO SCH (09:00)
[2020-04-19] MEDS ORDERED: HEPARIN SOD 5,000 UNIT/0.5 ML VIAL SQ SCH (09:00)
--- NOTE | 2020-04-20 11:25 | Discharge Summary (DS) ---
PRINCIPAL DIAGNOSIS: Incisional hernia and umbilical hernia. PROCEDURES: The patient underwent laparoscopic umbilical and incisional hernia repair. HISTORY OF PRESENT ILLNESS: The patient is a 60-year-old female with known umbilical and incisional hernia for definitive repair. HOSPITAL COURSE: She was brought into the hospital on 04/18/2020 where she underwent laparoscopic umbilical and incisional hernia repair, which she tolerated very well and did very well overnight, felt stable for discharge on 04/19/2020 to be followed in the surgical clinic within 1-2 weeks.
== END 2020-04-19 09:05 | disposition home or self-care (01) ==
LOC: ASU 05:22 → 3N 05:22